=== PATIENT | female | born 1960 | race American Indian/Alaskan Native ===

== ENCOUNTER 2017-01-11 15:16 | Emergency (ER) | payer OTHER ==
[~2017-01-11] VITALS: Ht 162.6 cm; Wt 82.0 kg
[~2017-01-11 15:16] MED LIST: CYCL-36 PO; NAPR550 PO; Z.0.NO CURRENT MEDS
[2017-01-11 15:19] VITALS: BP 128/90; PULSE 83; RESP 17; TEMP 98.9; O2SAT 97
[2017-01-11] MEDS ORDERED: AMLO5TAB2 PO (15:36)
[2017-01-11] MEDS ORDERED: ASPI81CH37 CHEW (15:36)
--- NOTE | 2017-01-11 15:53 | PD ---
HPI Chief Complaint: Injury Time Seen by Provider: 15:51 Travel History International Travel<30 days: No Contact w/Intl Traveler<30days: No Traveled to known affect area: No History of Present Illness HPI 56-year-old female presents the emergency department after slipping and falling on set of stairs landing on her left foot. Patient states pain in her left ankle and foot at this time. Patient denies hitting her head or other injury. Patient has a fractured this ankle in the past. She is able to wiggle her toes and has normal sensation distal to the ankle. There are no open wounds or abrasions. Pain is a 8/10. Patient cannot bear weight on the left foot. Patient is allergic to penicillin. PFSH Past Medical History Arthritis: Yes Diminished Hearing: No Hypertension: Yes Tetanus Vaccination: < 5 Years Influenza Vaccination: Yes ?: Not LMP: REVERSING [employer] Social History Alcohol Use: Yes ("SOCIALLY") Tobacco Use: No Substance Use: No Allergies-Medications (Allergen,Severity, Reaction): Coded Allergies: Penicillin (Verified Allergy, Mild, 01/11/17) Reported Meds & Prescriptions Reported Meds & Active Scripts Active Reported Aspirin Low Dose (Aspirin) 81 Mg Chew 81 Mg CHEW DAILY Amlodipine (Amlodipine Besylate) 5 Mg Tab 5 Mg PO DAILY Review of Systems Except as stated in HPI: all other systems reviewed are Neg General / Constitutional: No: Fever Eyes: No: Visual changes HENT: No: Headaches Cardiovascular: No: Chest Pain or Discomfort Respiratory: No: Shortness of Breath Gastrointestinal: No: Abdominal Pain Genitourinary: No: Dysuria Musculoskeletal: No: Pain Skin: No Rash Neurologic: No: Weakness Psychiatric: No: Depression Endocrine: No: Polydipsia Hematologic/Lymphatic: No: Easy Bruising Physical Exam Narrative GENERAL: Patient appears in mild to moderate distress. SKIN: Warm and dry. Normal color. Normal turgor. No abrasions or open wounds. Ecchymosis is noted over the dorsal left foot. HEAD: Atraumatic. Normocephalic. Nontender. EYES: Pupils equal and round. No scleral icterus. No injection or drainage. ENT: No nasal bleeding or discharge. Mucous membranes pink and moist. Pharynx is clear. NECK: Trachea midline. No JVD. Supple and nontender. No bony tenderness or step-off. CARDIOVASCULAR: Regular rate and rhythm. RESPIRATORY: No accessory muscle use. Clear to auscultation. Breath sounds equal bilaterally. MUSCULOSKELETAL: Extremities without clubbing, cyanosis, or edema. No obvious deformities. The left foot and ankle appears swollen with ecchymosis present she has tenderness at the base of the ankle and dorsal proximal foot without obvious deformity. No increased pain at the base of the fifth metatarsal NEUROLOGICAL: Awake and alert. No obvious cranial nerve deficits. Motor grossly within normal limits. Five out of 5 muscle strength in the arms and legs. Normal speech. PSYCHIATRIC: Appropriate mood and affect; insight and judgment normal. Data Data Last Documented VS Vital Signs Date Time Temp Pulse Resp B/P Pulse Ox O2 Delivery O2 Flow Rate FiO2 01/11/17 15:19 98.9 83 17 128/90 97 Orders Ankle, Complete ([id number]) (01/11/17 15:50) Foot, Complete ([id number]) (01/11/17 15:50) Ice/Cold Pack (01/11/17 15:50) Ketorolac Inj (Toradol Inj) (01/11/17 16:30) MDM Medical Decision Making Medical Screen Exam Complete: Yes Emergency Medical Condition: Yes Differential Diagnosis Fall. Left ankle sprain. Left foot sprain. Possible fracture. Narrative Course Patient is medically stable at time of exam. X-rays of the left foot and ankle are ordered. X-ray show no acute fracture per radiologist. Patient is given Toradol 60 mg IM. Patient has crutches and an Ortho boot at home which she can wear at home from previous injury. Patient can bear weight as tolerated. Patient is given ibuprofen 800 mg 3 times daily with food #30. Patient take Tylenol as well as needed for pain. Patient is to use ice and elevation frequently. Patient to follow with her primary care physician if symptoms continue or worsen in the next 2 weeks. Diagnosis Primary Impression: Contusion of left foot, initial encounter Additional Impression: Sprain of left ankle Qualified Code: S93.402A - Sprain of left ankle, unspecified ligament, initial encounter Referrals: Primary Care Physician Patient Instructions: Ankle Sprain (ED), Foot Contusion (ED), Foot Sprain (ED) , General Instructions Additional Instructions: X-ray show no acute fracture per radiologist. Patient is given Toradol 60 mg IM. Patient has crutches and an Ortho boot at home which she can wear at home from previous injury. Patient can bear weight as tolerated. Patient is given ibuprofen 800 mg 3 times daily with food #30. Patient take Tylenol as well as needed for pain. Patient is to use ice and elevation frequently. Patient to follow with her primary care physician if symptoms continue or worsen in the next 2 weeks. Med/Other Pt SpecificInfo: Prescription(s) given Disposition: 01 DISCHARGE HOME Condition: Stable Adryan Mcfarlane Jan 11, 2017 15:53 Adryan Mcfarlane Jan 11, 2017 15:53
[2017-01-11] MEDS ORDERED: EXTR500C PO (16:28)
[2017-01-11] MEDS ORDERED: IBUP800T23 PO (16:28)
[2017-01-11] MEDS ORDERED: KETOROLAC TROMETHAMINE 60 MG/2 ML (IM) VIAL IM ONE (16:30)
--- NOTE | 2017-01-11 16:58 | RADHPO ---
EXAM DATE/TIME: 01/11/2017 15:47 [facility] COMPARISON: No previous studies available for comparison. INDICATIONS : Left foot pain. Patient states she fell on stairs yesterday. MEDICAL HISTORY : None. SURGICAL HISTORY : None. ENCOUNTER: Initial ACUITY: 2 days PAIN SCORE: 4/10 LOCATION: Left foot. FINDINGS: Three view examination of the left foot demonstrates no soft tissue swelling, dislocation, or fractur e. The tarsal bones appear intact. There is mild to moderate osteoarthritis especially at the inter tarsal joints. CONCLUSION: 1. No acute fracture or dislocation. 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 Easton Garcia MD on January 11, 2017 at 16:55 Board Certified Radiologist. This report was verified electronically.
--- NOTE | 2017-01-11 16:59 | RADHPO ---
EXAM DATE/TIME: 01/11/2017 15:52 [facility] COMPARISON: No previous studies available for comparison. INDICATIONS : Left ankle pain. Patient states she fell on the stairs yesterday. MEDICAL HISTORY : None. SURGICAL HISTORY : None. ENCOUNTER: Initial ACUITY: 2 days PAIN SCORE: 7/10 LOCATION: Left ankle. FINDINGS: There is soft tissue swelling at the medial and lateral malleolus. Accessory ossicles present. No acu te fracture or dislocation. No bony destructive change. CONCLUSION: 1. No acute bony abnormality. Soft tissue swelling at the ankle especially laterally. Accessory ossic les at the medial and lateral malleoli may be related to remote injury. Easton Garcia MD on January 11, 2017 at 16:57 Board Certified Radiologist. This report was verified electronically.
== END 2017-01-11 17:10 | disposition home or self-care (01) ==
LOC: PHEFT 15:16
DX: S90.32XA Contusion of left foot, initial encounter (principal); S93.402A Sprain of unspecified ligament of left ankle, initial encounter; W10.9XXA Fall (on) (from) unspecified stairs and steps, initial encounter
CPT/HCPCS: 73610; 73630; 96372; 99283; J1885